=== PATIENT | female | born 1955 | race African-American/Black ===

== ENCOUNTER 2017-08-05 08:22 | Outpatient (CLI) | payer OTHER | END 2017-08-05 08:23 | disposition home or self-care (01) | LOC: BICMAMMO 08:22 | PROVIDERS: ATTEND Family Medicine | DX: N61.0 Mastitis without abscess (principal) | CPT/HCPCS: 77066; G0279 ==

== ENCOUNTER 2017-09-07 08:37 | Outpatient (CLI) | payer OTHER ==
[2017-09-07 10:08] LABS: Anion Gap 15 mmol/L (10-20); BUN (Urea Nitrogen) 52 mg/dL (9.8-20.1); Calc. Creatinine Clearance 0 mL/min (70-130); Calcium 9.8 mg/dL (7.8-10.44); Carbon Dioxide 23 mmol/L (23-31); Chloride 107 mmol/L (98-107); Estimated GFR-MDRD 31; Glucose 152 mg/dL (80-115); Potassium 4.6 mmol/L (3.5-5.1); Sodium 140 mmol/L (136-145)
== END 2017-09-07 08:38 | disposition home or self-care (01) ==
LOC: LABBT 08:37
PROVIDERS: ATTEND Surgery
DX: Z01.818 Encounter for other preprocedural examination (principal); C50.012 Malignant neoplasm of nipple and areola, left female breast
CPT/HCPCS: 80048; 93005; 93010

== ENCOUNTER → 2017-09-16 | Day surgery (SDC) | payer OTHER ==
[2017-09-07 09:02] VITALS: BMI 36.4
[~2017-09-16] MED LIST: Bupivacaine/Epinephrine 0.25% 30 ML VIAL ONE; CEFAZOLIN 1 GM VIAL ONE; CEFAZOLIN/Water 2 GM/20 ML SYRINGE ONE; Dexamethasone 20 MG/5 ML VIAL ONE; Fentanyl 100 MCG/2 ML VIAL ONE; Lidocaine 1% PF 5 ML VIAL ONE; Lidocaine 2% 10 ML INJ ONE; Ondansetron HCl/PF 4 MG/2 ML Vial ONE; PROPOFOL 200 MG/20 ML VIAL ONE
--- NOTE | 2017-09-16 11:29 | NM ---
LEFT BREAST LYMPHOSCINTIGRAPHY: Date: 09/16/17 HISTORY: Malignant neoplasm of nipple and areola, left female breast. RADIOPHARMACEUTICAL: 400 microcuries technetium-99m filtered sulfur colloid injected into divided doses in the left periar eolar region. FINDINGS: Focally increased uptake in the left axilla is consistent with sentinel lymph node. No lydia visualiz ation is seen in the internal mammary chains of the right axilla. IMPRESSION: [place] lymph node in the left axilla. POS: [place]
--- NOTE | 2017-09-17 07:04 | OP ---
DATE OF PROCEDURE: 09/16/2017 PREOPERATIVE DIAGNOSIS: Left breast Paget's disease. POSTOPERATIVE DIAGNOSIS: Left breast Paget's disease. PROCEDURE: Left partial mastectomy including nipple areolar complex, including subareolar resection, Deep axillary node biopsy, left axilla (sentinel node protocol). SURGEON: Awais Samuel M.D. ANESTHESIA: General. ESTIMATED BLOOD LOSS: Minimal. COMPLICATIONS: None. SPECIMEN: Left nipple areolar complex partial breast resection, marked with 2 short superior and 1 l kannan lateral. Deep axillary node sent to path for final diagnosis. INDICATION: The patient is a 62-year-old female with chronic open wound to the left nipple, biopsied by me in the office showing Paget's disease. Mammogram and ultrasound showed no underlying abnormal ity. PROCEDURE IN DETAIL: The patient was taken to the operating room and laid supine on the operating ro om table. She had previously undergone lymphoscintigraphy to the left axilla showing uptake in the l eft axilla. The left chest, breast, arm, axilla was all prepped and draped in a sterile fashion. In cision was made below the hairline of the left axilla. 5 mL methylene blue dye had been infiltrated under the left nipple prior to the procedure and massaged for 5-10 minutes. The clavipectoral fascia is entered. A blue node is found, it has high counts, it is removed, high counts on the back table. Background count then drops to near 0. The wound was irrigated and closed using 3-0 Vicryl, 4-0 Mo nocryl, and Dermabond. Next, an elliptical incision is performed to ellipse out the nipple areolar c omplex in the left breast. A subareolar wedge resection is performed as well. The specimen is marke d with 2 short superior, 1 long lateral and sent to path for final diagnosis. In the dermal layer th e nipple appears to approach the superior margin, so an additional superior margin is taken with sutu re placed on new margin. The wound is irrigated. Local anesthetic is applied, meticulous hemostasis obtained and the wound was closed using 3-0 Vicryl, 4-0 Monocryl, and Dermabond. The patient was en route to recovery in stable condition. All instrument counts, needle counts, lap counts were correc t.
== END ==
LOC: SDC 08:41
PROVIDERS: ATTEND Surgery
PROC: 0HBU0ZZ Excision of Left Breast, Open Approach (ICD-10-PCS; principal; 2017-09-16)
PROC: 07B60ZX Excision of Left Axillary Lymphatic, Open Approach, Diagnostic (ICD-10-PCS; principal; 2017-09-16)
DX: C50.012 Malignant neoplasm of nipple and areola, left female breast (principal); I10 Essential (primary) hypertension; E11.9 Type 2 diabetes mellitus without complications; Z88.5 Allergy status to narcotic agent; Z79.82 Long term (current) use of aspirin; Z79.84 Long term (current) use of oral hypoglycemic drugs; Z79.899 Other long term (current) drug therapy
CPT/HCPCS: 78195; 88305; 88307; 96374; A9541; J0690; J1100; J2001; J2405; J2704; J3010; Q9968

== ENCOUNTER 2017-10-07 08:09 | Outpatient (CLI) | payer OTHER | END 2017-10-07 08:10 | disposition home or self-care (01) | LOC: BICULT 08:09 | PROVIDERS: ATTEND Internal Medicine Nephrology | DX: I13.0 Hypertensive heart and chronic kidney disease with heart failure and stage 1 through stage 4 chronic kidney disease, or unspecified chronic kidney disease (principal); E11.22 Type 2 diabetes mellitus with diabetic chronic kidney disease; N18.9 Chronic kidney disease, unspecified; R80.9 Proteinuria, unspecified; N20.0 Calculus of kidney; E78.5 Hyperlipidemia, unspecified; M19.90 Unspecified osteoarthritis, unspecified site | CPT/HCPCS: 36415; 76700; 80069; 81003; 82570; 84156; 84443; 84550; 85027; 85652 ==

== ENCOUNTER 2017-12-17 08:22 | Outpatient (CLI) | payer OTHER | END 2017-12-17 08:23 | disposition home or self-care (01) | LOC: BICCT 08:22 | PROVIDERS: ATTEND Family Medicine | DX: R19.00 Intra-abdominal and pelvic swelling, mass and lump, unspecified site (principal) | CPT/HCPCS: 74150 ==

== ENCOUNTER 2018-08-08 10:19 | Outpatient (CLI) | payer MEDICARE ==
--- NOTE | 2018-08-08 11:05 | MMO ---
Bilateral MAMMO Bilat Diag [facility]. CLINICAL HISTORY: Patient is 63 years old and is seen for diagnostic exam. The patient has no family history of breast cancer. The patient has a history of paget's disease (of the nipple) in the left breast in 2018. The patient has a history of left Excisional Biopsy in 2018 - malignant - PAGET'S. VIEWS: The views performed were: bilateral craniocaudal with tomosynthesis; bilateral mediolateral oblique with tomosynthesis; and bilateral mediolateral. FILMS COMPARED: The present examination has been compared to a prior imaging study performed at [facility] on 08/05/2017. MAMMOGRAM FINDINGS: There are scattered fibroglandular densities. Finding 1: There are new post operative changes seen in the left breast. Finding 2: There are benign appearing calcifications seen in both breasts. There are no suspicious masses, suspicious calcifications, or new areas of architectural distortion. IMPRESSION: THERE IS NO MAMMOGRAPHIC EVIDENCE OF MALIGNANCY. A ROUTINE FOLLOW-UP MAMMOGRAM IN 1 YEAR IS RECOMMENDED. THE RESULTS OF THIS EXAM WERE SENT TO THE PATIENT. ACR BI-RADS Category 2 - Benign finding MAMMOGRAPHY NOTE: 1. A negative mammogram report should not delay a biopsy if a dominant of clinically suspicious mass is present. 2. Approximately 10% to 15% of breast cancers are not detected by mammography. 3. Adenosis and dense breasts may obscure an underlying neoplasm.
--- NOTE | 2018-08-08 11:39 | BD ---
EXAM: DEXA bone density examination HISTORY: History of menopause, osteoporosis screening COMPARISON: None FINDINGS: L1--bone mineral density 1.295 g/sq cm; T score 2.8. Z score 3.7 L2--bone mineral density 1.364 g/sq cm; T score 3.1; Z score 4.1 L3--bone mineral density 1.318 g/sq cm; T score 2.1; Z score 3.2 L4--bone mineral density 1.251 g/sq cm; T score 1.7, Z score 2.8 Total L1-L4--bone mineral density 1.302 g/sq cm; T score 2.3, Z score 3.3 Left femoral neck--bone mineral density0.890; T score 0.4, Z score 0.9 Total proximal left femur--bone mineral density 1.105; T score 1.3, Z score 1.5 IMPRESSION: Based on the WHO criteria, the patient's bone mineral density is considerednormal. The pa tient is a low risk for fracture.
== END 2018-08-08 10:20 | disposition home or self-care (01) ==
LOC: BICMAMMO 10:19
PROVIDERS: ATTEND Family Medicine
DX: N61.0 Mastitis without abscess (principal); Z78.0 Asymptomatic menopausal state
CPT/HCPCS: 77066; 77080; G0279

== ENCOUNTER 2018-09-08 13:46 | Outpatient (CLI) | payer MEDICARE ==
--- NOTE | 2018-09-08 15:00 | CT ---
Noncontrast enhanced CT chest Fall with chest pain. Multilevel thoracic predominantly right-sided anterolateral osteophytes seen. Disc space height loss with endplate irregularity seen at the T9-10 level. This is compatible with changes of spondylosis and disc degeneration. There is a inferior endplate Schmorl's node at the T10 level. No evidence of rib fractures seen. No evidence of other bony lesion seen. No evidence of lung parenchymal lesions seen. IMPRESSION: Unremarkable noncontrast enhanced CT of the chest.
== END 2018-09-08 13:47 | disposition home or self-care (01) ==
LOC: BICCT 13:46
PROVIDERS: ATTEND Family Medicine
DX: R07.81 Pleurodynia (principal)
CPT/HCPCS: 71250

== ENCOUNTER 2018-11-08 12:15 | Outpatient (CLI) | payer MEDICARE ==
--- NOTE | 2018-11-08 14:20 | MRI ---
THORACIC SPINE MRI WITHOUT IV CONTRAST: Date: 11/08/18 HISTORY: Radicular pain of thoracic region. Sensitivity to inferior left breast. Left armpit numbness. TECHNIQUE: Multiplanar, multisequence MRI examination of the thoracic spine is performed. FINDINGS: There are extensive multilevel disc osteophytosis changes with some indention of the ventral thecal s ac, but without veronica cord compression. At T7, there is a prominent focal left area of facet arthrosis causing some dorsal lateral recess chato rowing with possible slight cord indention. No evidence for spinal cord mass or abnormal spinal cord signal. The left T10 pedicle region and posterior vertebral body show some subtle STIR hyperintensity, nonspe cific, possibly mild stress-related changes or reaction-type changes. IMPRESSION: 1. Prominent focal left facet arthrosis at T7 with some narrowing of the posterior left lateral rece ss and possible mid cord indention. 2. Multilevel disc osteophytosis with some indention of the ventral thecal sac, but without signific ant associated cord compression. 3. Very subtle altered marrow signal in the posterior body and pedicle region of T10 on the left britt e, possibly subtle stress-related change. No evidence for other significant acute process. POS: [facility]
== END 2018-11-08 12:16 | disposition home or self-care (01) ==
LOC: BICMRI 12:15
PROVIDERS: ATTEND Family Medicine
DX: M47.24 Other spondylosis with radiculopathy, thoracic region (principal); M25.78 Osteophyte, vertebrae
CPT/HCPCS: 72146

== ENCOUNTER 2019-01-26 05:51 | Day surgery (SDC) | payer MEDICARE ==
[2019-01-25 11:44] VITALS: BMI 37.4
[2019-01-26] MEDS ORDERED: EPINEPHrine 0.3 MG in Ophthalmic Irrigation Solution 500 ML IV SCH (06:00)
[2019-01-26] MEDS ORDERED: Phenylephrine 2.5% Ophth Soln 5 ML BOT ONE (06:02)
[2019-01-26] MEDS ORDERED: Cyclopentolate 1% Opth Drop 2 ML BOT ONE (06:02)
[2019-01-26] MEDS ORDERED: Fentanyl 100 MCG/2 ML VIAL ONE (06:40)
[2019-01-26] MEDS ORDERED: Midazolam HCl 2 mg/2 ml Vial ONE (06:40)
[2019-01-26] MEDS ORDERED: PROPOFOL 20 ML ONE (06:40)
[2019-01-26] MEDS ORDERED: hydrALAZINE 20 MG/ML VIAL ONE (08:07)
--- NOTE | 2019-01-26 10:53 | OP ---
DATE OF PROCEDURE: 01/26/2019 PRINCIPAL PREOPERATIVE DIAGNOSES: 1. Tractional retinal detachment, left eye. 2. Epiretinal membrane, left eye. POSTOPERATIVE DIAGNOSES: 1. Tractional retinal detachment, left eye. 2. Epiretinal membrane, left eye. NAME OF PROCEDURES PERFORMED: 1. 25-gauge pars plana vitrectomy, left eye. 2. Tractional retinal detachment repair, left eye. 3. Epiretinal membrane/internal limiting membrane removal, left eye. ESTIMATED BLOOD LOSS: None. SPECIMENS REMOVED: None. COMPLICATIONS: None. ANESTHESIA: MAC with retrobulbar block. SUMMARY OF OPERATION: The patient was identified in the preoperative holding area. The correct eye being the left eye was marked for surgery. The patient was taken to the operating room, where MAC anesthesia was induced. The retrobulbar block was administered to the left eye. The block consisted of 1:1 ratio of 4% lidocaine and 0.75% Marcaine. A total of 5 mL was administered. The left eye was then prepped and draped in the usual sterile ophthalmic fashion for surgery. A wire lid speculum was placed. A standard 25-gauge pars plana vitrectomy platform was fashioned with trocars placed approximately 3.5 mm from the limbus. The infusion was noted to be within the vitreous cavity prior to being turned on to the infusion pressure of 30 mmHg. The light pipe and micro vitrector were introduced in the eye under visualization of the BIOM viewing system. A superior combined tractional retinal detachment and rhegmatogenous retinal detachment was noted with a very small defect and small amount of subretinal fluid. Additionally, a tractional retinal detachment was noted along the inferotemporal arcade extending into the macula. A diffuse epiretinal membrane was additionally noted. A careful core and peripheral shave vitrectomy were performed, relieving the anterior-posterior traction from the retina to the safest extent possible. Subsequently, the tractional fibrosis along the superior combined retinal detachment was taken and removed. It was delaminated and segmented with Micro vitrector. Additionally, the tractional retinal detachment along the inferotemporal arcade was delaminated and segmented with the use of the Micro vitrector. Following retinal detachment repair, attention was turned to the epiretinal membrane. Using ICG dye, the epiretinal membrane/internal limiting membrane was stained. Using the Isauro ILM forceps, the epiretinal membrane/internal limiting membrane complex was gently removed in a circumferential fashion about the fovea. The peel extended approximately 2 disk diameters in radius circumferentially. Following the completion of peeling, the Micro vitrector was reintroduced in the eye to remove any residual vitreous debris. Endolaser was used to provide barricade around the superior retinal detachment as well as completing the panretinal photocoagulation in the typical fashion with sparing of the 3 and 9 o'clock meridians. The cannulas were sequentially removed. All sclerotomies were noted to be watertight. Subconjunctival Ancef and Kenalog were injected. The wire lid speculum was removed followed by application of TobraDex ophthalmic ointment and a light patch and shield. The patient tolerated the procedure well and was taken to outpatient recovery area in good condition. Job ID: [id number]
== END 2019-01-26 09:00 | disposition home or self-care (01) ==
LOC: SDC 05:51
PROVIDERS: ATTEND Ophthalmology Retina Specialist
PROC: 08T53ZZ Resection of Left Vitreous, Percutaneous Approach (ICD-10-PCS; principal; 2019-01-26)
PROC: 08NF3ZZ Release Left Retina, Percutaneous Approach (ICD-10-PCS; 2019-01-26)
DX: H33.42 Traction detachment of retina, left eye (principal); H33.012 Retinal detachment with single break, left eye; Z79.82 Long term (current) use of aspirin; Z79.84 Long term (current) use of oral hypoglycemic drugs; Z79.899 Other long term (current) drug therapy; Z88.5 Allergy status to narcotic agent
CPT/HCPCS: J0171; J0360; J2250; J2704; J3010